=== PATIENT | male | born 1965 | race American Indian/Alaskan Native ===

== ENCOUNTER 2017-03-25 23:14 | Emergency (ER) | payer MEDICAID ==
[2017-03-25 23:19] VITALS: BP 114/73; PULSE 94; RESP 16; TEMP 98.1; O2SAT 98
--- NOTE | 2017-03-25 23:35 | ED PDOC ---
HPI: Psych/Substance Abuse Time Seen by Provider: 03/25/17 23:20 Chief Complaint (Nursing): Substance Abuse Chief Complaint (Provider): substance abuse History Per: Patient, EMS History/Exam Limitations: no limitations Additional History Per: Patient, EMS Additional Complaint(s): 51 y/o male history of heroin abuse brought in by EMS for eval of substance abuse. Patient states he just got out of detox in [place] today, snorted a bag of heroin [place] the train station bathroom and then woke up with EMS and police next to him on the train home to [place]. As per EMS, patient received two intranasal doses of narcan in the field. Patient awake, alert, oriented upon arrival;denies acute medical or psychiatric complaints. Past Medical History Reviewed: Historical Data, Nursing Documentation, Vital Signs Vital Signs: Last Vital Signs Temp 98.1 F 03/25/17 23:15 Pulse 94 H 03/25/17 23:15 Resp 16 03/25/17 23:15 BP 114/73 03/25/17 23:15 Pulse Ox 98 03/25/17 23:15 - Medical History PMH: No Chronic Diseases - Family History Family History: States: No Known Family Hx - Living Arrangements Living Arrangements: Alone - Social History Current smoker - smoking cessation education provided: Yes Alcohol: None Drugs: Opiates - Allergies Allergies/Adverse Reactions: Allergies Allergy/AdvReac Type Severity Reaction Status Date / Time No Known Allergies Allergy Verified 03/25/17 23:14 Review of Systems ROS Statement: Except As Marked, All Systems Reviewed And Found Negative Physical Exam - Reviewed Nursing Documentation Reviewed: Yes Vital Signs Reviewed: Yes - Physical Exam Appears: Positive for: Well, Non-toxic, No Acute Distress Head Exam: Positive for: ATRAUMATIC, NORMAL INSPECTION, NORMOCEPHALIC Skin: Positive for: Normal Color Eye Exam: Positive for: Normal appearance ENT: Positive for: Normal ENT Inspection Cardiovascular/Chest: Positive for: Regular Rate, Rhythm Respiratory: Positive for: Normal Breath Sounds Gastrointestinal/Abdominal: Positive for: Normal Exam Back: Positive for: Normal Inspection Extremity: Positive for: Normal ROM Neurologic/Psych: Positive for: Alert, Oriented - ECG O2 Sat by Pulse Oximetry: 98 - Progress ED Course And Treament: accucheck Patient awake, alert, oriented x3 upon arrival to ED. Ambulating steady gait. Stable for discharge. Disposition - Clinical Impression Clinical Impression: Substance abuse - Patient ED Disposition Is Patient to be Admitted: No Counseled Patient/Family Regarding: Studies Performed, Diagnosis, Need For Followup - Disposition Disposition: Routine/Home Disposition Time: 23:40 Condition: IMPROVED Instructions: Narcotic Abuse (ED)
== END 2017-03-26 00:14 | disposition home or self-care (01) ==
LOC: H.ER 23:14
DX: F19.10 Other psychoactive substance abuse, uncomplicated (principal)